=== PATIENT | male | born 1965 | race American Indian/Alaskan Native ===

== ENCOUNTER 2018-11-12 17:31 | Emergency (ER) | payer SELFPAY ==
[2018-11-12] MEDS ORDERED: NACL 0.9% 1000 ML 1,000 ML IV ONE (17:45)
[2018-11-12] MEDS ORDERED: MORPHINE IV ONE (17:47)
[2018-11-12] MEDS ORDERED: ZOFRAN IV ONE (17:47)
--- NOTE | 2018-11-12 17:49 | Event Note ---
Date: 11/12/18 patient presents to ER with chest pain and left flank pain for the past 12 hrs. Accompanied by nausea, vomiting. no fever, chills or night sweats. Patient denies any significant medical history, has not taken any medications for symptoms. The initial assessment/diagnostic orders/clinical plan/treatment(s) is/are subject to change based on patient's health status,clinical progression and re- assessment by fellow clinical providers in the ED. Further treatment and workup at subsequent clinical providers discretion. Patient/guardian urged not to elope from the ED as their condition may be serious if not clinically assessed and managed.
[2018-11-12] MEDS ORDERED: ASPIRIN PO SCH (18:00)
[2018-11-12 18:13] LABS: Basophils % (Auto) 0.4 % (0.0-1.8); Eosinophils % (Auto) 0.1 % (0.0-4.3); Hemoglobin 15.1 gm/dl (11.8-15.2); Lymphocytes # (Auto) 0.7 K/mm3 (1.2-5.4); Lymphocytes % (Auto) 8.7 % (13.4-35.0); Mean Corpuscular HGB Conc 34 % (32-34); Mean Corpuscular Volume 89 fl (84-94); Monocytes # (Auto) 0.5 K/mm3 (0.0-0.8); Monocytes % (Auto) 5.9 % (0.0-7.3); Platelet Count 175 K/mm3 (140-440); Red Blood Count 4.94 M/mm3 (3.65-5.03)
--- NOTE | 2018-11-12 18:23 | XRay Report ---
CHEST 1 VIEW, 11/12/2018 6:04 PM INDICATION: Chest pain COMPARISON: None FINDINGS: Support devices: None Heart: Cardiac silhouette and pulmonary vascularity are within normal limits. Lungs/pleura: There is no focal airspace disease or significant pleural effusion. Additional findings: No additional acute findings. IMPRESSION: 1. No evidence of acute cardiopulmonary process. Signer Name: Marion Garcia MD Signed: 11/12/2018 6:19 PM Workstation Name: [id number]
[2018-11-12 18:25] LABS: INR 0.97 (0.87-1.13)
[2018-11-12 18:26] LABS: Partial Thromboplastin Time 21.8 Sec. (24.2-36.6)
[2018-11-12 18:39] LABS: Alanine Aminotransferase 23 units/L (7-56); Albumin 4.3 g/dL (3.9-5); BUN/Creatinine Ratio 11; Blood Urea Nitrogen 14 mg/dL (9-20); Hemolysis Index 11
--- NOTE | 2018-11-12 19:16 | Cat Scan Report ---
CT ABDOMEN AND PELVIS WITHOUT CONTRAST INDICATION / CLINICAL INFORMATION: left flank pain. TECHNIQUE: Axial CT images were obtained through the abdomen and pelvis without IV contrast. All CT scans at [facility] [facility] location are performed using CT dose reduction for ALARA by means of automated exposure control. COMPARISON: None available. FINDINGS: LOWER CHEST: No significant abnormality. LIVER: 1.79 cm cyst right lower liver GALLBLADDER: No significant abnormality. BILE DUCTS: No significant abnormality. PANCREAS: No significant abnormality. SPLEEN: No significant abnormality. ADRENALS: No significant abnormality. RIGHT KIDNEY and URETER: Several punctate calcifications noted right kidney. LEFT KIDNEY and URETER: Moderate dilatation of the left collecting system is present. Several punctat e calcifications are present left kidney. Obstructing calculus mid distal left ureter is present lynette uring 1.1 cm in diameter STOMACH and SMALL BOWEL: No significant abnormality. COLON: No significant abnormality. APPENDIX: No significant abnormality. PERITONEUM: No free fluid. No free air. No fluid collection. LYMPH NODES: No significant adenopathy. AORTA and ARTERIES: No significant abnormality. IVC and VEINS: No significant abnormality. URINARY BLADDER: No significant abnormality. REPRODUCTIVE ORGANS: No significant abnormality. ADDITIONAL FINDINGS: None. SKELETAL SYSTEM: No significant abnormality. IMPRESSION: 1. Moderate hydronephrosis left kidney secondary to obstructing calculus in the mid distal left urete r 2. Bilateral nephrolithiasis 3. Hepatic cyst Signer Name: Jose Gooden MD Signed: 11/12/2018 7:11 PM Workstation Name: [id number]
[2018-11-12] MEDS ORDERED: ZOFRAN ONE (21:13)
[2018-11-12] MEDS ORDERED: TORADOL ONE (21:13)
[2018-11-12] MEDS ORDERED: NACL 0.9% 1000 ML 1,000 ML ONE (21:14)
[2018-11-12] MEDS ORDERED: MORPHINE ONE (21:14)
[2018-11-12] MEDS ORDERED: TORADOL IV ONE (21:32)
--- NOTE | 2018-11-12 21:35 | Emergency Department Report ---
ED Abdominal Pain HPI - General Chief Complaint: Chest Pain Stated Complaint: SOB/VOMIT/LFT SIDE CHEST PAIN Time Seen by Provider: 11/12/18 20:31 Source: patient Mode of arrival: Ambulatory Limitations: No Limitations - History of Present Illness Initial Comments: 53-year-old male presents to ED with complaint of left flank pain, nausea and vomiting, onset today. Patient denies fever, urinary frequency, hematuria. Denies history of kidney stones. MD Complaint: flank pain -: This afternoon Location: L flank Radiation: none Migration to: no migration Severity: severe Severity scale (0 -10): 8 Quality: sharp Consistency: intermittent Improves With: nothing Worsens With: nothing Associated Symptoms: nausea, vomiting, diarrhea. denies: fever, dysuria, hematuria - Related Data Previous Rx's Medication Instructions Recorded Last Taken Type Amlodipine Besylate [Norvasc] 5 mg PO QDAY #30 tablet 11/12/18 Unknown Rx HYDROcodone/APAP 5-325 [[place] 1 each PO Q6HR PRN #10 tablet 11/12/18 Unknown Rx 5/325] Ondansetron [Zofran Odt] 4 mg PO Q8HR PRN #20 tab.rapdis 11/12/18 Unknown Rx Tamsulosin [Flomax] 0.4 mg PO QDAY 5 Days #5 cap 11/12/18 Unknown Rx Allergies Allergy/AdvReac Type Severity Reaction Status Date / Time No Known Allergies Allergy Unverified 11/12/18 17:44 ED Review of Systems ROS: Stated complaint: SOB/VOMIT/LFT SIDE CHEST PAIN Other details as noted in HPI Comment: All other systems reviewed and negative Constitutional: denies: chills, fever Respiratory: denies: shortness of breath Gastrointestinal: abdominal pain, nausea, vomiting, diarrhea Genitourinary: denies: dysuria, frequency, hematuria ED Past Medical Hx - Past Medical History Previous Medical History?: No - Surgical History Past Surgical History?: No - Social History Smoking Status: Never Smoker Substance Use Type: None - Medications Home Medications: Home Medications Medication Instructions Recorded Confirmed Last Taken Type Amlodipine Besylate [Norvasc] 5 mg PO QDAY #30 tablet 11/12/18 Unknown Rx HYDROcodone/APAP 5-325 [[place] 1 each PO Q6HR PRN #10 tablet 11/12/18 Unknown Rx 5/325] Ondansetron [Zofran Odt] 4 mg PO Q8HR PRN #20 tab.rapdis 11/12/18 Unknown Rx Tamsulosin [Flomax] 0.4 mg PO QDAY 5 Days #5 cap 11/12/18 Unknown Rx ED Physical Exam - General Limitations: No Limitations General appearance: alert, in no apparent distress - Head Head exam: Present: atraumatic, normocephalic - Eye Eye exam: Present: normal appearance, PERRL, EOMI - ENT ENT exam: Present: mucous membranes moist - Neck Neck exam: Present: normal inspection - Respiratory Respiratory exam: Present: normal lung sounds bilaterally. Absent: respiratory distress - Cardiovascular Cardiovascular Exam: Present: regular rate, normal rhythm - GI/Abdominal GI/Abdominal exam: Present: soft, tenderness (LLQ tenderness). Absent: distended - Extremities Exam Extremities exam: Present: normal inspection - Back Exam Back exam: Present: CVA tenderness (L) - Neurological Exam Neurological exam: Present: alert, oriented X3 - Psychiatric Psychiatric exam: Present: normal affect, normal mood - Skin Skin exam: Present: warm, dry, intact, normal color ED Course Vital Signs 11/12/18 11/12/18 11/12/18 17:44 20:36 20:38 Temperature 99 F Pulse Rate 79 Respiratory 22 18 Rate Blood Pressure 176/119 O2 Sat by Pulse 98 97 Oximetry 11/12/18 11/12/18 11/12/18 20:46 21:30 22:00 Temperature Pulse Rate Respiratory Rate Blood Pressure 151/104 152/103 152/103 O2 Sat by Pulse 97 97 97 Oximetry 11/12/18 11/12/18 22:30 23:05 Temperature Pulse Rate 73 Respiratory Rate Blood Pressure 162/111 O2 Sat by Pulse 98 Oximetry ED Medical Decision Making - Lab Data Result diagrams: 11/12/18 17:54 11/12/18 17:54 - EKG Data -: EKG Interpreted by Me EKG shows normal: sinus rhythm, axis, intervals, QRS complexes, ST-T waves Rate: normal - EKG Data Interpretation: no acute changes, LVH - Radiology Data Radiology results: report reviewed, image reviewed - Medical Decision Making 53 yo M presents to ED with complaint of left flank pain, onset earlier today. Pt has 1 cm kidney stone in the mid to distal left ureter with moderate hy dronephrosis. Renal function is normal. UA shows no evidence of infection. Pt reports resoultion of pain following IV fluids, toradol, and morphine. Pt advisd to f/u with urology due to the size of the stone. Rx given for norco, zofran, flomax. Pt also with elevated BP, not currently on any BP meds, and reports remote hx of CVA. Rx also given for norvasc. Outpt f/u advised. Return precautions given. - Differential Diagnosis kidney stone, pyelonephritis, ACS Critical care attestation.: If time is entered above; I have spent that time in minutes in the direct care of this critically ill patient, excluding procedure time. ED Disposition Clinical Impression: Kidney stone Disposition: - TO HOME OR SELFCARE Is pt being admited?: No Condition: Stable Instructions: Kidney Stones (ED), Heart Healthy Diet (ED), Hypertension (ED) Prescriptions: Tamsulosin [Flomax] 0.4 mg PO QDAY 5 Days #5 cap HYDROcodone/APAP 5-325 [[place] 5/325] 1 each PO Q6HR PRN #10 tablet PRN Reason: Pain Amlodipine Besylate [Norvasc] 5 mg PO QDAY #30 tablet Ondansetron [Zofran Odt] 4 mg PO Q8HR PRN #20 tab.rapdis PRN Reason: Vomiting Referrals: [facility] MD SAY [Primary Care Provider] - 3-5 Days MARY ANNE ALVARADO MD [Staff Physician] - 3-5 Days Time of Disposition: 22:35
[2018-11-12 22:12] LABS: Bilirubin,Urine NEG (Negative); Blood,Urine SM (Negative); Color,Urine Yellow (Yellow); Mucus,Urine FEW /HPF; Protein,Urine <15 mg/dL mg/dL (Negative); Urobilinogen,Urine < 2.0 mg/dL (<2.0)
[2018-11-12 23:05] VITALS: BP 162/111
== END 2018-11-12 23:05 | disposition home or self-care (01) ==
LOC: ED 17:31
DX: N20.0 Calculus of kidney (principal); Z79.899 Other long term (current) drug therapy
CPT/HCPCS: 36415; 71045; 74176; 80053; 81001; 84484; 85025; 85610; 85730; 93005; 93010; 96361; 96374; 96375; 99284; J1885; J2270; J2405; J7030